=== PATIENT | female | born 1980 | race Caucasian/White ===

== ENCOUNTER → 2021-12-28 11:49 | Outpatient (CLI) | payer OTHER, SELFPAY ==
[2021-12-28 13:42] LABS: COVID19 -Nasal RAPID Negative (Negative)
== END ==
PROVIDERS: PCP Nurse Practitioner Family; Visit Provider Surgery
DX: Z01.812 Encounter for preprocedural laboratory examination (principal); Z20.822 Contact with and (suspected) exposure to COVID-19
CPT/HCPCS: 87635; C9803

== ENCOUNTER 2021-12-29 09:56 | Day surgery (SDC) | payer OTHER, SELFPAY ==
[2021-12-29 10:26] VITALS: BP 137/90; PULSE 73; RESP 16; TEMP 36.9; O2SAT 100; BMI 25.7
[2021-12-29] MEDS: LACTATED RINGERS 1,000 ML 42 ML IV (10:48)
--- NOTE | 2021-12-29 11:20 | PM.PREOP ---
Pre-operative Note COVID-19 COVID-19 status: Negative Result date/Date tested (Pos, Neg/Pending): 12/28/21 Interval Note History & Physical reviewed/Exam performed by Physician: Yes Changes to H&P: No ASA Class (for procedural sedation): II
[2021-12-29] MEDS: MIDAZOLAM 5 MG/5 ML VIAL 8 MG IV (11:27)
[2021-12-29] MEDS: fentaNYL 100 MCG/2 ML INJ 175 MCG IV (11:27)
--- NOTE | 2021-12-29 11:53 | PM.OP.COLON ---
Operative Date/Time/Diagnoses Date of procedure: 12/29/21 Time of procedure: 11:53 Pre-op diagnosis: Rectal bleeding Post-op diagnosis: same Procedure & Clinicians Study performed: Colonoscopy Same procedure as scheduled: Yes Surgeon: Minh Claros Procedure Notes Procedure in detail: Surgeon: Minh Claros MD Procedure: The patient was brought to the endoscopy suite, placed in left lateral decubitus position. The patient was connected to monitoring devices. A time-out was performed. Sedation was administered. Once the patient was adequately sedated, a digital rectal exam was performed and was normal except for fairly high sphincter tone. The scope was then inserted and advanced to the cecum where the appendiceal orifice was identified and photographed. The scope was then slowly withdrawn over greater than 6 minutes. The mucosa was thoroughly inspected. Polyps were found. The scope was retroflexed in the rectum. There is some erythema around the dentate line but no internal hemorrhoids. There was no obvious fissure. The scope was straightened and removed. The patient was awakened and brought to recovery. Versed: 8 mg Fentanyl: 175 mcg EBL: 0 Findings: Erythema around the dentate line Scope withdrawal time: 8 Sedation minutes: 24 Post-procedure Recommendations: Colonoscopy in 10 years Disposition: PACU
[2021-12-29 11:56] VITALS: BP 134/95; PULSE 74; RESP 16; TEMP 37.8; O2SAT 98
[2021-12-29 12:03] VITALS: BP 134/95; PULSE 75; RESP 16; O2SAT 96
[2021-12-29 12:10] VITALS: BP 136/96; PULSE 72; RESP 16; TEMP 37.3; O2SAT 96
[2021-12-29 12:29] VITALS: BP 137/96; PULSE 74; RESP 16
== END 2021-12-29 12:50 | disposition home or self-care (01) ==
PROVIDERS: PCP Nurse Practitioner Family; Referring Provider Surgery; Visit Provider Surgery
PROC: 0DJD8ZZ Inspection of Lower Intestinal Tract, Via Natural or Artificial Opening Endoscopic (ICD-10-PCS; CPT 45378; principal; 2021-12-29 11:15)
DX: K62.5 Hemorrhage of anus and rectum (principal)
CPT/HCPCS: 45378; 99152; 99153; J2250; J3010